=== PATIENT | male | born 1990 | race Caucasian/White ===

== ENCOUNTER 2022-11-07 01:24 | Emergency (ER) | payer BC, SELFPAY ==
[2022-11-07 01:34] VITALS: BP 124/89; PULSE 106; RESP 18; TEMP 36.8; O2SAT 99
--- NOTE | 2022-11-07 01:42 | ED.ANXIETY ---
HPI - Anxiety General Chief Complaint: Anxiety Stated Complaint: Psych Source: patient Mode of arrival: ambulatory Limitations: clinical condition History of Present Illness HPI narrative: patient is a 32-year-old gentleman who presents to the emergency room with police secondary to what appears to be a manic episode. EMS brought this fellow to the hospital as his mother was concerned about his symptoms. Patient was recently placed on Wellbutrin alone. complaint: anxiety Onset (ago): hour(s) (10) Severity: moderate Quality: constant Place: home History of similar episodes: Yes Provoking factors: other ( New Wellbutrin) Relieving factors: nothing Exacerbating factors: thinking about event Associated symptoms: denies other symptoms Related Data Allergies Allergy/AdvReac Type Severity Reaction Status Date / Time fentanyl AdvReac Itching Verified 11/07/22 01:57 Review of Systems Review of Systems: All systems reviewed & are unremarkable except as noted in HPI and below Constitutional: Constitutional: Reports no additional constitutional complaints Eyes: Eyes: Reports no additional eye complaints ENT: Reports system reviewed and no additional complaints, except as documented Cardiovascular: Cardiovascular: Reports no additional cardiovascular complaints Respiratory: Respiratory: Reports no additional respiratory complaints Gastrointestinal: Gastrointestinal: Reports no additional gastrointestinal complaints Genitourinary: Genitourinary: Reports no additional male genitourinary complaints Musculoskeletal: Musculoskeletal: Reports no additional musculoskeletal complaints Integumentary/Breasts: Skin/Breast: Reports system reviewed and no additional complaints, except as docu Neurologic: Reports system reviewed and no additional complaints, except as documented Psychiatric: Psychiatric: Reports as per HPI, Reports anxiety, Reports depression, Denies homicidal ideation and Denies suicidal ideation Endocrine: Endocrine: Reports no additional endocrine complaints Hematologic/Lymphatic: Hematologic/Lymphatic: Reports no additional hematologic/lymphatic complaints Allergic/Immunologic: Allergic/Immunologic: Reports no additional allergic/immunologic complaints PMFSH Social History Social History Smoking status: Never smoker Alcohol intake: current Exam Const: General: healthy appearing Nutritional Appearance: well nourished Orientation/consciousness: patient oriented x3 Limitations: behavioral limitations HENMT: Head: normal to inspection Eyes: Conjunctivae: conjunctivae normal Neck: Neck: normal visual inspection Chest: Chest palpation & inspection: normal inspection of the chest Resp: Effort & Inspection: normal respiratory effort Cardio: Rate: regular rate Rhythm: regular rhythm Heart sounds: no murmurs GI: GI Palp: Yes Soft to palpation, No Tenderness to palpation present (GI) and No Guarding due to palpation present (GI) : General: Yes bladder normal to palpation Back/Spine/Pelvis: Back: no CVA tenderness Skin: General skin exam: normal color Neuro: General: patient oriented x3, moves all extremities, no meningeal signs, no focal motor deficits and CN's II-XI intact bilaterally Speech: Abnormal speech present ( patient is having pressured speech with word salad) Extrem: General: normal to inspection Psych: Affect: Anxious affect present Other: patient is having some auditory type loosen a shins verses visual hallucinations; more so, patient is having pressured speech with word salad and anxiety like changes Course Course Emergency Course: patient was being monitored in a room and he appeared to have continued anxiety; police were still present; patient told me he needed to see and talk to his mother at this time and ran SS disease could outside the emergency department and he was unable to be brought back into t
[2022-11-07] MEDS: OLANZapine 10 MG, WATER, STERILE FOR INJECTION 2.1 ML IM (01:45)
--- NOTE | 2022-11-07 02:02 | PC.NURSE ---
At 0202, while Dr. Das at bedside, pt ran out of the main entrance of the ED stating I need to talk to my mom . Dr. Das attempted to verbally redirect the patient as he was exiting and encourage him to stay, but the pt walked out of the main doors and then ran out of sight. Pt not suicidal or homicidal at time of elopement.
--- NOTE | 2022-11-07 03:12 | ED.ANXIETY ---
HPI - Anxiety General Chief Complaint: Anxiety Stated Complaint: ERROR History of Present Illness HPI narrative: ERROR; see next chart opened for second encounter Related Data Home Medications Medication Instructions Recorded Confirmed Unable to Obtain Home Medications 11/07/22 11/07/22 Allergies Allergy/AdvReac Type Severity Reaction Status Date / Time fentanyl AdvReac Itching Verified 11/07/22 01:57 PMFSH Social History Social History Smoking status: Never smoker Alcohol intake: current Substance use type: unknown Course Vital Signs Vital signs: Vital Signs Temperature 36.8 C 11/07/22 01:34 Pulse Rate 106 H 11/07/22 01:34 Respiratory Rate 18 11/07/22 01:34 Blood Pressure 124/89 11/07/22 01:34 Pulse Oximetry 99 11/07/22 01:34 Temperature 36.8 C 11/07/22 01:34 Pulse Rate 106 H 11/07/22 01:34 Respiratory Rate 18 11/07/22 01:34 Blood Pressure 124/89 11/07/22 01:34 Pulse Oximetry 99 11/07/22 01:34 Discharge Plan Discharge Clinical Impression: Psychosis, Panic attack Patient Disposition: Elopement After Seen by Prov Condition: Stable Prescriptions: No Action Unable to Obtain Home Medications Follow-up/Referrals: UNKNOWN,DOCTOR [Primary Care Provider] - Time of Disposition: 02:15
--- NOTE | 2022-11-07 03:18 | ECG_ITS ---
Measurements Intervals Saline Rate: 66 P: 49 HI: 130 QRS: 66 QRSD: 82 T: 56 QT: 428 QTc: 448 Interpretive Statements SINUS RHYTHM NORMAL ECG NO PREVIOUS ECG AVAILABLE FOR COMPARISON Electronically Signed On 11-07-2022 6:53:42 CDT by Herber Cantu D.O.
== END 2022-11-07 02:02 | disposition left against medical advice (07) ==
PROVIDERS: Emergency Provider Emergency Medicine
DX: F29 Unspecified psychosis not due to a substance or known physiological condition (principal); F41.0 Panic disorder [episodic paroxysmal anxiety]
CPT/HCPCS: 93005; 96372; 99283

== ENCOUNTER 2022-11-07 03:06 | Emergency (ER) | payer BC, SELFPAY ==
[2022-11-07 03:13] VITALS: BP 132/86; PULSE 102; RESP 18; TEMP 36.8; O2SAT 99
--- NOTE | 2022-11-07 03:33 | ED.ANXIETY ---
HPI - Anxiety General Chief Complaint: Anxiety Stated Complaint: Anxiety Time Seen by Provider: 11/07/22 03:08 Source: patient and EMS Mode of arrival: ambulatory Limitations: clinical condition History of Present Illness HPI narrative: patient is a 32-year-old gentleman who was just in the emergency room less than 1 hour ago and has presented back via EMS.? No police present this time.? Patient was given Zyprexa 10 mg on his recent visit and decided to elope via running out of the hospital and into the community.? Police department had found the patient out in the community and called EMS.? EMS brought the patient back to the emergency room for further and continued evaluation.? He is not under arrest at this time.? PD is not present at this time.? Patient is willing to have further workup and testing done at this time.? Patient is having anxiety with fears of unsafe home environment for him and his family with unfound concerns. complaint: anxiety Onset (ago): hour(s) (10) Severity: moderate Quality: constant Place: home History of similar episodes: Yes Provoking factors: emotional stress and work/job stress Relieving factors: medication ( Zyprexa appears to have helped since last visit) Exacerbating factors: nothing Associated symptoms: denies other symptoms Related Data Home Medications Medication Instructions Recorded Confirmed Unable to Obtain Home Medications 11/07/22 11/07/22 Allergies Allergy/AdvReac Type Severity Reaction Status Date / Time fentanyl AdvReac Itching Verified 11/07/22 01:57 Review of Systems Review of Systems: All systems reviewed & are unremarkable except as noted in HPI and below Constitutional: Constitutional: Reports no additional constitutional complaints Eyes: Eyes: Reports no additional eye complaints ENT: Reports system reviewed and no additional complaints, except as documented Cardiovascular: Cardiovascular: Reports no additional cardiovascular complaints Respiratory: Respiratory: Reports no additional respiratory complaints Gastrointestinal: Gastrointestinal: Reports no additional gastrointestinal complaints Genitourinary: Genitourinary: Reports no additional male genitourinary complaints Musculoskeletal: Musculoskeletal: Reports no additional musculoskeletal complaints Integumentary/Breasts: Skin/Breast: Reports system reviewed and no additional complaints, except as docu Neurologic: Reports system reviewed and no additional complaints, except as documented Psychiatric: Psychiatric: Reports as per HPI, Reports anxiety, Denies homicidal ideation and Denies suicidal ideation Comments: patient is having less noted anxiety and psychosis during this 2nd visit to the emergency room tonight; patient is still having persecution concerns for his safety which are not found to be true Endocrine: Endocrine: Reports no additional endocrine complaints Hematologic/Lymphatic: Hematologic/Lymphatic: Reports no additional hematologic/lymphatic complaints Allergic/Immunologic: Allergic/Immunologic: Reports no additional allergic/immunologic complaints PMFSH Social History Social History Smoking status: Never smoker Alcohol intake: current Substance use type: unknown Exam Const: General: no acute distress, alert and confusion Nutritional Appearance: well nourished Orientation/consciousness: patient oriented x3 Limitations: behavioral limitations HENMT: Head: normal to inspection Eyes: Conjunctivae: conjunctivae normal Neck: Neck: normal visual inspection Chest: Chest palpation & inspection: normal inspection of the chest Resp: Effort & Inspection: normal respiratory effort Auscultation: clear to auscultation bilaterally Cardio: Rate: regular rate Rhythm: regular rhythm Heart sounds: no murmurs GI: Inspection: distended GI Palp: Yes Soft to palpation, No Tenderness to palpation present (GI) and No Gua
[2022-11-07] MEDS: LORazepam (*CRX) 1 MG TABLET PO (03:35)
[2022-11-07 03:47] LABS: Basophils Absolute Auto 0.06 K/mm3 (0.00-0.10); Basophils Percent Auto 0.6 % (0.0-1.0); Eosinophils Absolute Auto 0.03 K/mm3 (0.02-0.50); Eosinophils Percent Auto 0.3 % (1.0-6.0); Hematocrit 43.5 % (40.0-54.0); Hemoglobin 15.2 g/dL (14.0-18.0); Immature Granulocyte Absolute 0.05 K/mm3 (0.00-0.00); Immature Granulocyte Percent A 0.5 % (0.0-0.0); Lymphocytes Absolute Auto 1.27 K/mm3 (1.10-4.50); Mean Corpuscular HGB Conc 34.9 g/dL (32.0-36.0); Mean Corpuscular Hemoglobin 30.1 pg (27.0-31.0); Mean Corpuscular Volume 86.1 fL (78.0-102.0); Mean Platelet Volume 9.8 fl (8.7-11.0); Monocytes Absolute Auto 1.34 K/mm3 (0.10-0.90); Monocytes Percent Auto 12.7 % (2.0-11.0); Neutrophils Absolute Auto 7.8 K/mm3 (1.7-7.2); Neutrophils Percent Auto 73.9 % (50.0-70.0); Platelet Count Result 288 K/mm3 (150-420); Red Blood Count 5.05 M/mm3 (4.70-6.10); Red Cell Distribution Width 12.3 % (11.6-14.4); White Blood Count 10.6 K/mm3 (4.8-10.8)
[2022-11-07 04:00] LABS: Chloride 102 mmol/L (98-108); Potassium 3.5 mmol/L (3.5-5.1); Sodium 141 mmol/L (136-145)
[2022-11-07 04:06] LABS: Appearance Urine Clear (Clear); Bilirubin Urine 2+ (Negative); Blood Urine Negative (Negative); Glucose Urine UA Negative (Negative); Ketones Urine Trace (Negative); Leukocyte Esterase Ur Negative LEU/UL (Negative); Nitrate Urine Negative (Negative); Protein Urine 2+ (Negative); Specific Grav Ur >= 1.030 (1.010-1.020); pH Urine 5.5 (5.0-8.0)
[2022-11-07] MEDS: OLANZapine 5 MG, WATER, STERILE FOR INJECTION 2.1 ML IM (04:07)
[2022-11-07 04:14] LABS: Color Urine Dark Yellow (Yellow)
[2022-11-07 04:15] LABS: Add Urine Microscopic? YES; Amorphous Sediment Urine Few; Amphetamine Screen Urine Positive (Negative); Bacteria Urine Trace /hpf; Barbiturate Screen Urine Negative (Negative); Benzodiazepines Screen Urine Negative (Negative); Cannabinoid Screen Urine Positive (Negative); Cocaine Screen Urine Negative (Negative); Methadone Screen Urine Negative (Negative); Mucus Urine Moderate /lpf; Opiate Screen Urine Negative (Negative); Phencyclidine Screen Urine Negative (Negative); RBC Urine 0-2 /hpf (0-2); Squamous Epithelial Cell Urine None seen /hpf (Few); WBC Urine 0-3 /hpf (0-3)
[2022-11-07 04:22] LABS: Alanine Aminotransferase 75 U/L (16-63); Albumin Level 4.4 g/dL (3.4-5.0); Alkaline Phosphatase 78 U/L (46-116); Anion Gap 14 mmol/L (8-16); Aspartate Amino Transferase 47 U/L (15-37); Blood Urea Nitrogen 17 mg/dL (7-18); Calcium 9.1 mg/dL (8.5-10.1); Carbon Dioxide 25 mmol/L (21-32); Estimated CRCL calculation 71 ml/min; Estimated Glomerular Filt Rate 59; Glucose 111 mg/dL (70-99); Osmolality Calculated 294 mOsm/kg (285-295); Thyroid Stimulating Hormone 3.07 uIU/mL (0.36-3.74); Total Protein 8.4 g/dL (6.4-8.2)
[2022-11-07 04:24] LABS: Influenza A QL RT-PCR Negative (Negative); Influenza B QL RT-PCR Negative (Negative); SARS-CoV-2 RNA PCR Negative (Negative)
[2022-11-07 04:27] LABS: Acetaminophen < 2 ug/mL (10-30); Ethanol < 3 mg/dL (0-6); Salicylate < 0.3 mg/dL (2.8-20.0)
[2022-11-07 04:58] VITALS: BP 138/88; PULSE 90; RESP 20; O2SAT 96
--- NOTE | 2022-11-07 07:01 | PC.NURSE ---
[facility] RETURNS CALL, STATING SOMEONE WILL BE EN ROUTE. FACE SHEET FAXED. PT IS CURRENTLY SLEEPING IN EXAM ROOM, LIGHTS DIMMED AND WARM BLANKETS WERE PROVIDED.
--- NOTE | 2022-11-07 07:51 | PC.NURSE ---
TIMMY VELAZQUEZ IN WITH PT AT THIS TIME.
[2022-11-07 09:38] VITALS: BP 107/75; PULSE 60; RESP 18; TEMP 36.1; O2SAT 99
--- NOTE | 2022-11-07 09:38 | PC.NURSE ---
PER [address] PT IS TO BE DC ON A SAFETY PLAN. BREAKFAST TRAY AT BEDSIDE. PT CANNOT STAY AWAKE LONG ENOUGH TO EAT IT. PT IS UNABLE TO ANSWER 2 QUESTIONS IN A ROW WITHOUT DOZING BACK OFF. ERP IS AWARE. VSS PER MONITOR. WILL CONTINUE TO MONITOR.
--- NOTE | 2022-11-07 10:25 | PC.NURSE ---
MOTHER CALLED TO CHECK PT STATUS. PT CONTINUES TO SLEEP, AROUSES TO VERBAL, HOWEVER DOZES BACK OFF. WILL CONTINUE TO MONITOR.
--- NOTE | 2022-11-07 12:33 | PC.NURSE ---
[facility] PT, SODA PROVIDED, HE DRANK THE ENTIRE SODA, STATES HE WANTS TO STAY HERE AND DETOX, THEN GO TO [facility] IN THE MORNING. ADVISED PT THIS WAS NOT AN OPTION, HE ROLLED OVER AND WENT BACK TO SLEEP. ERP AWARE. WILL CONTINUE TO MONITOR.
[2022-11-07 12:35] VITALS: BP 110/68; PULSE 66; RESP 18; TEMP 36.2; O2SAT 98
--- NOTE | 2022-11-07 13:18 | PC.NURSE ---
SPOKE WITH MOTHER AT PT REQUEST, SHE IS UNABLE TO PICK PT UP, REPORTS TO HAVE HIM WALK HOME. WILL CONTINUE TO MONITOR.
--- NOTE | 2022-11-07 14:36 | PC.NURSE ---
SPOKE WITH [facility], THEY AGREE TO TRANSPORT PT TO [facility] TO MEET MOTHER FOR TRANSPORT HOME. MOTHER IS IN AGREEMENT WITH THIS. SOMEONE TURNED IN THE PT'S PHONE TO WASH HELPER, THEY FOUND IT LAYING IN THEIR YARD TODAY. PT IS IN AGREEMENT WITH PLAN OF CARE.
[2022-11-07 15:30] VITALS: BP 109/60; PULSE 60; RESP 18; TEMP 36.3; O2SAT 99
--- NOTE | 2022-11-07 15:59 | PC.NURSE ---
1530 [facility] TRANSPORTED PT TO MOTHER. PT WAS CALM AND COOPERATIVE UPON DC, AMBULATORY OUT OF ED WITHOUT DISTRESS. MOTHER WAS NOTIFIED AND IS AWAITING ARRIVAL OF PT.
== END 2022-11-07 15:30 | disposition home or self-care (01) ==
PROVIDERS: Emergency Medicine; Emergency Provider Emergency Medicine
DX: F29 Unspecified psychosis not due to a substance or known physiological condition (principal); Z20.822 Contact with and (suspected) exposure to COVID-19
CPT/HCPCS: 36415; 80053; 80307; 81001; 84443; 85025; 87636; 93005; 96372; 99284; A9270

== ENCOUNTER 2023-04-13 03:46 | Emergency (ER) | payer BC, SELFPAY ==
[2023-04-13 03:50] VITALS: BP 135/77; PULSE 78; RESP 18; TEMP 36.1; O2SAT 100
--- NOTE | 2023-04-13 04:01 | PC.NURSE ---
Friend that brought him in states he is willing to pick him up if he needs a ride. Demetrius Fatoumata [phone]
--- NOTE | 2023-04-13 04:06 | PC.NURSE ---
Patient presents A&Ox4 and denies SI/HI.
--- NOTE | 2023-04-13 04:07 | PC.NURSE ---
Patient states that he was recently sober for about 4-5 months until a couple of hours ago when he used crystal 2-3 hours ago. Patient is looking to get help.
--- NOTE | 2023-04-13 04:34 | PC.NURSE ---
Patient asked for some socks. Patient was given non-slip slippers by nursing staff.
--- NOTE | 2023-04-13 04:49 | ED.GENADULT ---
HPI - General Adult General Chief complaint: Unspecified Stated complaint: wants help with soberity Time Seen by Provider: 04/13/23 04:14 History of Present Illness HPI narrative: Patient 32-year-old gentleman who presents emergency department chief complaint of methamphetamine abuse. The patient reports that he is homeless and reports that he had been sober from methamphetamine for some time using meth this evening the patient states that he is not suicidal denies being homicidal reports that he wants dry socks Related Data Home Medications Medication Instructions Recorded Confirmed Unable to Obtain Home Medications 11/07/22 11/07/22 Allergies Allergy/AdvReac Type Severity Reaction Status Date / Time fentanyl AdvReac Itching Verified 11/07/22 01:57 Review of Systems Review of Systems: A 10 system review of systems was completed on the patient and is negative except for what is stated in the HPI. Nursing and ancillary documentation was reviewed. [facility] Social History Social History Smoking status: Never smoker Alcohol intake: current Substance use type: methamphetamine Exam Narrative: GENERAL: Well-appearing, well-nourished, and in no acute distress. HEAD: Normocephalic, atraumatic. EYES: PERRLA and EOMI. ENT: Nares clear, no rhinorrhea or epistaxis. Mucous membranes moist. NECK: Supple. CHEST: Clear to auscultation. No respiratory distress. HEART: Regular rate and rhythm. No murmur heard. Normal peripheral pulses. ABDOMEN: Soft, nontender, nondistended, normal active bowel sounds. EXTREMITIES: Normal range of motion. No edema. SKIN: Warm, dry, no rash. NEURO: No focal deficits. Alert and oriented x3. PSYCH: Normal mood and affect. Denies suicidal or homicidal ideation Course Vital Signs Vital signs: Vital Signs Temperature 36.1 C L 04/13/23 03:50 Pulse Rate 78 04/13/23 03:50 Respiratory Rate 18 04/13/23 03:50 Blood Pressure 135/77 04/13/23 03:50 Pulse Oximetry 100 04/13/23 03:50 Oxygen Delivery Room Air 04/13/23 03:50 Temperature 36.1 C L 04/13/23 03:50 Pulse Rate 78 04/13/23 03:50 Respiratory Rate 18 04/13/23 03:50 Blood Pressure 135/77 04/13/23 03:50 Pulse Oximetry 100 04/13/23 03:50 Oxygen Delivery Room Air 04/13/23 03:50 Medical Decision Making MDM Narrative Medical decision making narrative: Differential diagnosis includes methamphetamine abuse, psychosis, The patient is not suicidal or homicidal at this point does not warrant temporary mcc and involuntary psychiatric admission. The patient chose to leave Vital Signs Vital Signs: Vital Signs Temperature 36.1 C L 04/13/23 03:50 Pulse Rate 78 04/13/23 03:50 Respiratory Rate 18 04/13/23 03:50 Blood Pressure 135/77 04/13/23 03:50 Pulse Oximetry 100 04/13/23 03:50 Oxygen Delivery Room Air 04/13/23 03:50 Temperature 36.1 C L 04/13/23 03:50 Pulse Rate 78 04/13/23 03:50 Respiratory Rate 18 04/13/23 03:50 Blood Pressure 135/77 04/13/23 03:50 Pulse Oximetry 100 04/13/23 03:50 Oxygen Delivery Room Air 04/13/23 03:50 Discharge Plan Discharge Clinical Impression: Methamphetamine abuse Patient Disposition: Home, Self-Care Condition: Stable Instructions: Antibiotic Form, Methamphetamine Use Disorder (ED) Prescriptions: No Action Unable to Obtain Home Medications Follow-up/Referrals: UNKNOWN,DOCTOR [Primary Care Provider] - Kalyan Clark MD [Physician] - [facility] [Outside] Time of Disposition: 04:51
== END 2023-04-13 04:56 | disposition home or self-care (01) ==
PROVIDERS: Emergency Provider Emergency Medicine
DX: F15.10 Other stimulant abuse, uncomplicated (principal); Z59.00 Homelessness unspecified
CPT/HCPCS: 99281

== ENCOUNTER 2023-05-01 11:42 | Outpatient (CLI) | payer BC, SELFPAY ==
[2023-05-01 13:03] LABS: Hepatitis B Surface Antigen Negative (Negative)
[2023-05-01 13:09] LABS: HAV RESULT Negative (Negative); Hepatitis B Core IgM Result Negative (Negative)
[2023-05-01 13:30] LABS: Hepatitis C Virus Antibody Reactive (Negative)
[2023-05-03 14:11] LABS: Hepatitis C RNA, Quant PCR 1820000 IU/mL
[2023-05-08 00:31] LABS: ALT 43 U/L (9-46); Alpha-2-Macroglobulin 180 mg/dL (106-279); Apolipoprotein A1 151 mg/dL (94-176); Fibrosis Score 0.08; Fibrosis Stage F0; GGT 19 U/L (3-90); Haptoglobin 107 mg/dL (43-212); Necroinflammat Act Grade A0-A1; Total Bilirubin 0.3 mg/dL (0.2-1.2)
== END 2023-05-01 11:43 | disposition home or self-care (01) ==
LOC: ANHLAB 11:45
PROVIDERS: Visit Provider Family Medicine
DX: B19.20 Unspecified viral hepatitis C without hepatic coma (principal)
CPT/HCPCS: 36415; 80074; 81596; 87522